=== PATIENT | female | born 1985 | race Two or more races ===

== ENCOUNTER 2019-11-02 23:33 | Emergency (ER) | payer OTHER ==
[2019-11-02 23:48] VITALS: BP 104/71; PULSE 69; TEMP 97; BMI 23.3
[2019-11-03] MEDS ORDERED: ACETAMINOPHEN 325 MG TABLET (FP) PO ONE (00:22)
--- NOTE | 2019-11-03 00:43 | PDOC ---
History of Present Illness - General Chief Complaint: Pain Stated Complaint: PAINTING PAIN Time Seen by Provider: 11/03/19 00:06 - History of Present Illness Initial Comments: 34 yo female with no PMH presents with back pain. Pt says the back pain has been intermittent for 3 month after she was moving a patient on the bed. Pt says the pain radiates to her right hip and right leg, worse with movement, standing, sitting, breathing and alleviated with bending forward. 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 She denies fevers, chills, nvd, abd pain, dysuria, hematuria, cp, sob. Past History - Medical History Allergies/Adverse Reactions: Allergies Allergy/AdvReac Type Severity Reaction Status Date / Time No Known Allergies Allergy Verified 11/02/19 23:48 Home Medications: Ambulatory Orders Lidocaine 5% Patch [Lidoderm Patch -] 1 patch TP DAILY #30 patch 11/03/19 Methocarbamol [Robaxin -] 500 mg PO TID #21 tablet 11/03/19 COPD: No - Reproductive History Is Patient Now?: No - Psycho-Social/Smoking History Smoking History: Never smoked - Substance Abuse Hx (Audit-C & DAST Scrn) How often the patient has a drink containing alcohol: Never Score: In Men: 4 or > Positive; In Women: 3 or > Positive: 0 Screen Result (Pos requires Nsg. Audit-10AR): Negative Review of Systems - Review of Systems Constitutional: No: Chills, Fever HEENTM: No: Recent change in vision, Double Vision Respiratory: No: Cough, Shortness of Breath Cardiac (ROS): No: Chest Pain, Chest Tightness ABD/GI: No: Constipated, Diarrhea, Nausea, Rectal Bleeding, Vomiting : No: Burning, Dysuria, Flank Pain Musculoskeletal: Yes: Back Pain, Joint Pain, Muscle Pain, Joint Stiffness Integumentary: No: Dryness, Erythema, Flushing Neurological: No: Headache, Weakness Psychiatric: No: Anxiety, Depression, Mood Swings Endocrine: No: Intolerance to Cold, Intolerance to Heat Hematologic/Lymphatic: No: Anemia, Easy Bruising *Physical Exam - Vital Signs Last Vital Signs Temp Pulse Resp BP Pulse Ox 97 F L 69 18 104/71 99 11/02/19 23:45 11/02/19 23:45 11/02/19 23:45 11/02/19 23:45 11/02/19 23:45 - Physical Exam General Appearance: Yes: Appropriately Dressed, Apparent Distress HEENT: positive: EOMI, Normal Voice Neck: negative: Tender, Rigid Respiratory/Chest: positive: Lungs Clear, Normal Breath Sounds. negative: Respiratory Distress Cardiovascular: positive: Regular Rhythm, Regular Rate, S1, S2 Gastrointestinal/Abdominal: positive: Tender, Flat, Soft Musculoskeletal: positive: Normal Inspection. negative: CVA Tenderness Extremity: positive: Normal Inspection, Normal Range of Motion, Other (positive straight leg test on right, equal bilateral LE reflexes, equal bilateral pulses) Integumentary: positive: Normal Color, Dry, Warm Neurologic: positive: Fully Oriented, Alert, Normal Mood/Affect Medical Decision Making - Medical Decision Making 34 yo female with no significant PMH presens with acute (3day) on chronic (3month) back pain after helping move a patient at work Positive straight leg raise Neuromuscularly in tact Negative test UA wnl CT lumbar shows Mild disc bulges at L4-L5 and L5-S1 Pt treated with Tylenol, Ibuprofen, Cyclobenazprine Pt prescribed lidocaine patch and robaxin Pt given instructions on following up with PCP, Ortho, and Neurosurgery Discharge - Discharge Information Problems reviewed: Yes Clinical Impression/Diagnosis: Back pain Condition: Stable Disposition: HOME - Admission No - Additional Discharge Information Prescriptions: Lidocaine 5% Patch [Lidoderm Patch -] 1 patch TP DAILY #30 patch Methocarbamol [Robaxin -] 500 mg PO TID #21 tablet - Follow up/Referral Referrals: [facility] [place] [facility] [place] [Provider Group] Elijah Mota MD, FAANS [Staff Physician] - Sanjay Luo MD [Staff Physician] - - Patient Discharge Instructions Patient Printed Discharge Instructions: DI for Low Back Pain Additional Instructions: Continue taking tylenol and ibuprofen for pain management as directed by the log deckman. Follow up with your PCP for further evaluation and workup of your condition with an MRI to obtain higher resolution imaging of your spinal cord. Return to the ED if your symptoms worsen and/or you experience loss of sensation or motor control in your legs, difficulty urinating, difficulty passing bowel movements. - Post Discharge Activity Work/Back to School Note: Back to Work
[2019-11-03] MEDS ORDERED: ACETAMINOPHEN 325 MG TABLET (FP) ONE ×2 (00:54→00:58)
[2019-11-03] MEDS ORDERED: IBUPROFEN 600 MG TABLET (FP) PO ONE ×2 (01:02→01:08)
[2019-11-03] MEDS ORDERED: CYCLOBENZAPRINE HCL 10 MG TABLET (FP) PO ONE (01:02)
[2019-11-03] MEDS ORDERED: CYCLOBENZAPRINE HCL 10 MG TABLET (FP) ONE (01:08)
[2019-11-03 01:10] LABS: PH,URINE 5.5 (5.0-8.0); URINE APPEARANCE CLEAR; URINE BILIRUBIN NEGATIVE (NEGATIVE); URINE COLOR YELLOW; URINE GLUCOSE (UA) NEGATIVE (NEGATIVE); URINE KETONE NEGATIVE (NEGATIVE); URINE LEUK ESTERASE NEGATIVE (NEGATIVE); URINE NITRITE NEGATIVE (NEGATIVE); URINE PROTEIN NEGATIVE (NEGATIVE); URINE UROBILINOGEN 0.2 mg/dL (0.2-1.0)
[2019-11-03 01:12] LABS: HCG,QUALITATIVE URINE Negative
--- NOTE | 2019-11-03 01:13 | PDOC ---
Documentation entered by Ben Holguin SCRIBE, acting as scribe for Alyson Mohan MD. Alyson Mohan MD: This documentation has been prepared by the scribe, Ben Holguin SCRIBE, under my direction and personally reviewed by me in its entirety. I confirm that the documentation accurately reflects all work, treatment, procedures, and medical decision making performed by me. Attending Attestation - Resident Resident Name: Tracy Yen - ED Attending Attestation I have performed the following: I have examined & evaluated the patient, The case was reviewed & discussed with the resident, I agree w/resident's findings & plan, Exceptions are as noted - HPI HPI: 11/03/19 00:39 The patient is a 34 year old female with no significant past medical history who presents to the emergency department for evaluation of back pain and intermittent right hip pain that began three months ago. The patient reports intermittent pain which last flared up 3 days ago and has been worsening since then. She notes pain in her right hip radiates down her right leg and is worsened with movement. The patient denies chest/abdominal pain, cough, and shortness of breath. Denies fever, chills, nausea, vomiting, and/or any GI symptoms. Denies any symptoms. Denies any other symptoms. Allergies: NKA - Physicial Exam PE: 11/03/19 00:15 GENERAL: The patient is awake, alert, and fully oriented, Nontoxic - in no acute distress. HEAD: Normocephalic, atraumatic. EYES: extraocular movements intact, sclera anicteric, conjunctiva clear. ENT: Normal voice, Moist mucous membranes. NECK: Normal range of motion, supple without lymphadenopathy, JVD, or masses. LUNGS: Breath sounds equal, clear to auscultation bilaterally. No wheezes, no crackles, no rales. HEART: Regular rate and rhythm, normal S1 and S2 without murmur, rub or gallop. ABDOMEN: Soft, nontender, normoactive bowel sounds. No guarding, no rebound. No masses. EXTREMITIES: Normal range of motion, no edema. No clubbing or cyanosis. No cords, erythema, or tenderness. NEUROLOGICAL: No facial asymmetry, Normal speech, normal gait. PSYCH: Normal mood, normal affect. SKIN: Warm, Dry, normal turgor, no rashes or lesions noted. - Medical Decision Making 11/03/19 04:51 Patient Name: [place] [place] THIS IS A PRELIMINARY REPORT DATE OF SERVICE: 2019-11-03 01:28:03 IMAGES: [id number] EXAM: LUMBAR SPINE CT W/O CONTRAST HISTORY: Low back pain COMPARISON: None. FINDINGS: Straightening of the normal physiological curvature of the lumbar spine No fractures or subluxation The disc spaces are normal in Mild disc bulges at L4-L5 and L5-S1 No central canal or neural foraminal stenosis IMPRESSION: 1. No acute lumbar spine findings Pt has chronic back findings in the spine. She needs MRI and follow up with her PMD 11/03/19 04:52 Home with analgesics and rest Discharge - Discharge Information Problems reviewed: Yes Clinical Impression/Diagnosis: Back pain Condition: Stable Disposition: HOME - Additional Discharge Information Prescriptions: Lidocaine 5% Patch [Lidoderm Patch -] 1 patch TP DAILY #30 patch Methocarbamol [Robaxin -] 500 mg PO TID #21 tablet - Follow up/Referral Referrals: [facility] [place] [facility] [place] [Provider Group] Elijah Mota MD, FAANS [Staff Physician] - Sanjay Luo MD [Staff Physician] - - Patient Discharge Instructions Patient Printed Discharge Instructions: DI for Low Back Pain Additional Instructions: Continue taking tylenol and ibuprofen for pain management as directed by the silver steward. Follow up with your PCP for further evaluation and workup of your condition with an MRI to obtain higher resolution imaging of your spinal cord. Return to the ED if your symptoms worsen and/or you experience loss of sensation or motor control in your legs, difficulty urinating, difficulty passing bowel movements. - Post Discharge Activity Work/Back to School Note: Back to Work
== END 2019-11-03 02:37 | disposition home or self-care (01) ==
LOC: JER 23:33
DX: M54.5 Low back pain (principal)
CPT/HCPCS: 72131-TC; 81003; 84703; 99284-25